=== PATIENT | female | born 2000 | race American Indian/Alaskan Native ===

== ENCOUNTER 2019-05-25 00:04 | Inpatient (IN) | payer MEDICAID ==
[2019-05-25] MEDS ORDERED: LACTATED RINGERS 1,000 ML IV ONE (00:24)
[2019-05-25 00:47] LABS: Basophils # (Auto) 0.1 K/mm3 (0.0-0.1); Basophils % (Auto) 0.4 % (0.0-1.8); Eosinophils # (Auto) 0.1 K/mm3 (0.0-0.4); Eosinophils % (Auto) 0.4 % (0.0-4.3); Hematocrit 36.1 % (30.3-42.9); Hemoglobin 11.8 gm/dl (10.1-14.3); Lymphocytes # (Auto) 2.6 K/mm3 (1.2-5.4); Lymphocytes % (Auto) 16.1 % (13.4-35.0); Mean Corpuscular HGB Conc 33 % (30-34); Mean Corpuscular Volume 85 fl (79-97); Monocytes # (Auto) 1.3 K/mm3 (0.0-0.8); Monocytes % (Auto) 7.9 % (0.0-7.3); Platelet Count 255 K/mm3 (140-440); Red Blood Count 4.24 M/mm3 (3.65-5.03); Red Cell Distribution Width 16.7 % (13.2-15.2)
[2019-05-25] MEDS ORDERED: BRETHINE SUB-Q ONE (00:54)
[2019-05-25] MEDS ORDERED: BRETHINE ONE (00:55)
[2019-05-25] MEDS ORDERED: SUBLIMAZE IV ONE (01:13)
[2019-05-25 01:19] LABS: Hepatitis C Virus Antibody Non-Reactive (NonReactive)
[2019-05-25] MEDS ORDERED: PEPCID IV ONE (01:47)
[2019-05-25] MEDS ORDERED: BICITRA PO ONE (01:47)
[2019-05-25] MEDS ORDERED: LACTATED RINGERS 1,000 ML IV SCH (02:00)
[2019-05-25] MEDS ORDERED: PITOCin/NS 20 UNIT/1000ML DRIP 20 UNITS/1,000 ML BAG IV SCH ×2 (02:00→06:20)
[2019-05-25] MEDS ORDERED: ANCEF/STERILE WATER 2 GM/20 ML 2 GM/20 ML SYRINGE IV NR (02:00)
[2019-05-25] MEDS ORDERED: REGLAN IV ONE (02:07)
[2019-05-25] MEDS ORDERED: WATER FOR IRRIG STERILE IR ONE (03:00)
[2019-05-25] MEDS ORDERED: NACL 0.9% IR ONE (03:00)
[2019-05-25] MEDS ORDERED: ZOFRAN ONE (03:31)
--- NOTE | 2019-05-25 04:46 | Anesthesia Consultation ---
Anesthesia Consult and Med Hx Date of service: 05/25/19 - Airway Anesthetic Teeth Evaluation: Good ROM Head & Neck: Adequate Mental/Hyoid Distance: Adequate Mallampati Class: Class II Intubation Access Assessment: Good - Pulmonary Exam CTA: Yes - Cardiac Exam Cardiac Exam: RRR - Pre-Operative Health Status ASA Pre-Surgery Classification: ASA2 Proposed Anesthetic Plan: Spinal - Pulmonary Hx Asthma: Yes (childhood) - Cardiovascular System Hx Hypertension: No - Central Nervous System Hx Seizures: No Hx Psychiatric Problems: No - Endocrine Hx Renal Disease: No Hx Hypothyroidism: No Hx Hyperthyroidism: No - Hematic Hx Anemia: No Hx Sickle Cell Disease: No - Other Systems Hx Alcohol Use: No
--- NOTE | 2019-05-25 04:47 | Anesthesia Day of Surgery ---
Anesthesia Day of Surgery - Day of Surgery Patient Examined: Yes Patient H&P Reviewed: Yes Patient is NPO: No
[2019-05-25] MEDS ORDERED: NUBAIN IV PRN (04:48)
[2019-05-25] MEDS ORDERED: NARCAN 0.4 MG/1 ML IV PRN ×2 (04:48→06:20)
[2019-05-25] MEDS ORDERED: ZOFRAN IV PRN (04:48)
[2019-05-25] MEDS ORDERED: PHENERGAN PR PRN (04:48)
[2019-05-25] MEDS ORDERED: PHENERGAN PO PRN (04:48)
[2019-05-25] MEDS ORDERED: DILAUDID IV PRN ×2 (04:48)
--- NOTE | 2019-05-25 04:48 | Post Anesthesia Evaluation ---
- Post Anesthesia Evaluation Patient Participated: Yes Airway Patent: Yes Stable Respiratory Function: Yes Nausea/Vomiting: No Temp > 96.8F: Yes Pain Manageable: Yes Adequeate Hydration: Yes Anesthesia Complications: No Block Receding Appropriately: Yes
[2019-05-25] MEDS ORDERED: SODIUM CHLORIDE FLUSH SYRINGE 10 ML IV NR ×2 (05:00→06:20)
[2019-05-25] MEDS ORDERED: TYLENOL PO SCH (05:00)
--- NOTE | 2019-05-25 05:04 | History and Physical Report ---
History of Present Illness Date of examination: 05/25/19 Date of admission: 05/25/19 02:34 Chief complaint: contractions History of present illness: Late entry. Pt is a 19 year old MARKEL 05/27/19 at 39w5d who presents in active labor with a history of 1 prior section. She lives in [facility] and was headed back there one her labor began. She denies any issues with her care the records are not available for review. Past History Past Medical History: no pertinent history Past Surgical History: section Social history: no significant social history - Obstetrical History Expected Date of Delivery: 05/27/19 Actual Gestation: 39 Week(s) 5 Day(s) : 2 Para: 1 Hx # Term Pregnancies: 1 Number of Pregnancies: 0 Spontaneous Abortions: 0 Induced : 0 Number of Living Children: 1 Medications and Allergies Allergies Allergy/AdvReac Type Severity Reaction Status Date / Time No Known Allergies Allergy Verified 05/25/19 00:22 Active Meds: Active Medications Acetaminophen (Tylenol) 650 mg PO Q6H NICK Stop: 05/26/19 23:01 Hydromorphone HCl (Dilaudid) 0.5 mg IV Q5M PRN PRN Reason: Breakthrough Pain Hydromorphone HCl (Dilaudid) 0.5 mg IV Q4H PRN PRN Reason: breakthrough pain > 7/10 Oxytocin/Sodium Chloride (Pitocin/Ns 20 Unit/1000ml Drip) 20 units in 1,000 mls @ 0 mls/hr IV TITR NICK Lactated Ringer's (Lactated Ringers) 1,000 mls @ 2,250 mls/hr IV PREOP NICK Stop: 05/26/19 02:27 Last Admin: 05/25/19 01:52 Dose: 2,250 mls/hr Documented by: Cefazolin Sodium (Ancef/Sterile Water 2 Gm/20 Ml) 2 gm in 20 mls @ 80 mls/hr IV PREOP NR; Protocol Stop: 05/25/19 23:45 Ketorolac Tromethamine (Toradol) 15 mg IV Q6HR NICK Stop: 05/27/19 00:01 Nalbuphine HCl (Nubain) 10 mg IV Q2H PRN PRN Reason: Pain, Moderate (4-6) Naloxone HCl (Narcan 0.4 Mg/1 Ml) 0.2 mg IV Q2MIN PRN PRN Reason: Res Rate </= 8 or 02 SAT < 92% Ondansetron HCl (Zofran) 4 mg IV Q8H PRN PRN Reason: Nausea And Vomiting Promethazine HCl (Phenergan) 25 mg PO Q6H PRN PRN Reason: Nausea And Vomiting Promethazine HCl (Phenergan) 25 mg AL Q6H PRN PRN Reason: Nausea And Vomiting Sodium Chloride (Sodium Chloride Flush Syringe 10 Ml) 10 ml IV PRN NR Review of Systems All systems: negative - Vital Signs Vital signs: Vital Signs Pulse BP 78 139/90 05/25/19 00:38 05/25/19 00:38 Temp Pulse Resp BP Pulse Ox 88 147/82 05/25/19 01:54 05/25/19 01:54 - Physical Exam Breasts: Positive: deferred Abdomen: Positive: soft (obese , gravid ) Uterus: Positive: enlarged (gravid) - Obstetrical FHR: auscultation normal Uterine Contraction Monitor Mode: External Cervical Dilatation: 5 (per RN ) Uterine Contraction Pattern: Regular Uterine Tone Measurement Phase: Resting Uterine Contraction Intensity: Strong/Firm Results Result Diagrams: 05/25/19 00:25 Abnormal lab results 05/25/19 Range/Units 00:25 WBC 15.9 H (4.5-11.0) K/mm3 RDW 16.7 H (13.2-15.2) % Amador % (Auto) 7.9 H (0.0-7.3) % Amador # 1.3 H (0.0-0.8) K/mm3 Seg Neutrophils % 75.2 H (40.0-70.0) % Seg Neutrophils # 11.9 H (1.8-7.7) K/mm3 All other labs normal. Assessment and Plan A: IUP at 39w5d Previous x 1 Active labor Obesity P: Proceed with repeat section and other indicated procedures
--- NOTE | 2019-05-25 05:05 | Procedure Note ---
OB Delivery Note - Delivery Date of Delivery: 05/25/19 Surgeon: KO ELIAS Estimated blood loss: other (800 mL) - Section Preop diagnosis: repeat , other (active labor ) Postop diagnosis: same section procedure: section Disposition: PACU Complications: none Narrative: Please see operative report. - A at 1 minute: 8 at 5 minutes: 9 Infant Gender: Male (3433g (7lb 9oz) @ 0336 am)
--- NOTE | 2019-05-25 05:08 | Operative Report ---
Operative Report Operative Report: Date of procedure: May 25, 2019 Preoperative diagnosis: 1) IUP at 39w5d 2) Previous x 1 3) Active labor 4) Obresity Postoperative diagnosis: Same Procedure: Repeat low transverse section Surgeon: Olivia Knutson M.D. Anesthesia: Regional Findings: 1) Viable female , Apgars 8 and 9, weight 3433g, (7 lb 9 oz) in cephalic presentation. Occiput Posterior 2) Normal-appearing uterus ovaries and tubes Estimated blood loss: 800 mL IV fluids: 1500 mL Urine output: 250 mL, clear at the end of the procedure Drains: Child to gravity Specimens: None Complications:None. Counts correct x 3 Disposition: Stable to PACU Indication for procedure: The patient is a 19-year-old -[place] female 2 para 1001 with a history of 1 prior section who presents in active labor. She desires repeat delivery. The decision was made proceeding with section. Operation in detail: After the risks, benefits, alternatives and complications were explained to the patient she gave informed consent for the procedure. She was subsequently taken to the operating room where regional anesthesia was noted to be adequate. She was subsequently placed in the dorsal supine position with leftward tilt and prepped and draped in a normal sterile fashion. heart tones were noted to be in the 155s prior to incision. A timeout was performed. A Pfannenstiel skin incision was made with the knife and carried down to the layer of the fascia with the Bovie. The fascia was incised in the midline and the fascial incision was extended bilaterally with the Bovie. Attention was then turned to the superior aspect of the incision which was grasped with two Kochers, tented up, and dissected off the rectus muscles. Attention was then turned to the inferior aspect of the incision which was grasped with two Kochers, tented up and dissected off the rectus muscles. The rectus muscles were then in the midline and partially transected for adequate visualization. The peritoneum was then entered bluntly. The peritoneal incision was extended with good visualization of the bladder. The peritoneal incision was then stretched. An Manny self-retaining retractor was placed for visualization. The bladder blade was placed. The vesicouterine peritoneum was grasped with smooth pickups and incised with Metzenbaum scissors. Metzenbaum scissors were used to extend the incision bilaterally. The bladder flap was then created digitally and the bladder blade was replaced. A transverse incision was made in the lower uterine segment with a knife and extended bilaterally with the bandage scissors. The head was delivered without difficulty followed by shoulders and body. was bulb suctioned at delivery. The cord was clamped and cut and the was handed to NICU staff in attendance. Cord blood was collected. The placenta was then d elivered manually. The uterus was then cleared of all clots and debris. The hysterotomy was then reapproximated with 0 Vicryl in a running locked fashion. A second layer of the same suture was used in imbricating fashion. The hysterotomy was inspected and hemostasis was noted. The Manny self-retaining retractor was removed. The gutters were irrigated and cleared of all clots and debris. The hysterotomy was again inspected and noted to be hemostatic. Surgicel was placed over the hysterotomy. The peritoneum was reapproximated with 2-0 Vicryl in a running fashion incorporating the rectus muscles. The fascia was reapproximated with 0 Vicryl in a running fashion. The subcutaneous tissue was reapproximated with 3- 0 Vicryl in a running fashion. The skin was reapproximated with 4-0 Vicryl in a subcuticular fashion. The incision was then covered with steri strips and a pressure dressing. The procedure was then ended. The patient tolerated the procedure well and was taken to the PACU in stable condition. All instrument, lap, and needle counts were correct 3.
[2019-05-25] MEDS ORDERED: TUCKS PAD TP PRN (06:20)
[2019-05-25] MEDS ORDERED: LANSINOH TP PRN (06:20)
[2019-05-25] MEDS ORDERED: MILK OF MAGNESIA PO PRN (06:20)
[2019-05-25] MEDS ORDERED: D5LR 1,000 ML IV SCH (06:20)
[2019-05-25] MEDS ORDERED: MYLICON PO PRN (06:20)
[2019-05-25] MEDS: TORADOL IV SCH ×2 (06:27→11:21)
[2019-05-25] MEDS: TYLENOL PO SCH ×3 (08:10→19:22)
[2019-05-25 08:16] LABS: Alanine Aminotransferase 10 units/L (7-56); Uric Acid 3.7 mg/dL (3.5-7.6)
[2019-05-25 09:17] LABS: Amphetamine Screen,Urine PRESUMPTIVE NEGATIVE; Benzodiazepines Screen,Urine PRESUMPTIVE NEGATIVE; Cannabinoid Screen,Urine PRESUMPTIVE NEGATIVE; Cocaine Screen,Urine PRESUMPTIVE NEGATIVE; Methadone Screen,Urine PRESUMPTIVE NEGATIVE; Opiate Screen,Urine PRESUMPTIVE NEGATIVE
[2019-05-25] MEDS: ANCEF/NS 1 GM/50 ML 1 GM/50 ML BAG IV SCH ×2 (09:22→17:55)
[2019-05-25] MEDS: FEOSOL PO SCH (09:22)
[2019-05-25] MEDS: PERCOCET 5/325 PO PRN ×2 (13:42→20:50)
[2019-05-25] MEDS ORDERED: TORADOL IV PRN (15:46)
[2019-05-25 16:53] LABS: Hematocrit 28.7 % (30.3-42.9); Hemoglobin 9.5 gm/dl (10.1-14.3)
[2019-05-26] MEDS: TYLENOL PO SCH ×5 (01:15→22:36)
[2019-05-26] MEDS: IBUPROFEN PO PRN ×4 (02:25→21:00)
[2019-05-26] MEDS: PERCOCET 5/325 PO PRN ×4 (02:25→20:59)
[2019-05-26] MEDS ORDERED: M-M-R II VACCINE SUB-Q ONE (06:00)
[2019-05-26] MEDS ORDERED: BOOSTRIX IM ONE (06:00)
[2019-05-26] MEDS: FEOSOL PO SCH (10:04)
--- NOTE | 2019-05-26 14:31 | Progress Note ---
Assessment and Plan A: POD#1 s/p repeat at term, Anemia, Obesity P: Routine care. Subjective - Subjective Date of service: 05/26/19 Principal diagnosis: s/p repeat section Interval history: No overnight events. Patient reports: appetite normal, voiding normally, pain well controlled, flatus, ambulating normally, no bowel movement [place]: doing well Objective - Vital Signs Latest vital signs: Vital Signs Temp Pulse Resp BP BP Pulse Ox 05/26/19 07:49 98.4 F 72 20 134/67 97 05/26/19 00:54 98.3 F 92 H 20 123/69 96 05/25/19 20:50 98.6 F 84 20 136/76 98 05/25/19 15:17 98 F 88 18 116/69 99 Intake and Output 05/25/19 05/26/19 05/26/19 22:59 06:59 14:59 Intake Total 480 240 120 Output Total 900 600 Balance -420 -360 120 Intake: Oral 480 240 120 Output: Urine 900 600 Indwelling Catheter 400 Void 500 600 Other: Total, Intake Amount 240 240 120 Total, Output Amount 500 600 # Voids Void 1 - Exam Breasts: Present: deferred Cardiovascular: Present: Regular rate Lungs: Present: Clear to auscultation Abdomen: Present: soft (obese ), abnormal bowel sounds (hypoactive ) Uterus: Present: fundal height below umbilicus Extremities: Present: edema (trace) Incision: Present: dressed - Labs Labs: Abnormal lab results 05/25/19 Range/Units 16:22 Hgb 9.5 L (10.1-14.3) gm/dl Hct 28.7 L D (30.3-42.9) %
[2019-05-26] MEDS: MILK OF MAGNESIA PO SCH (18:25)
[2019-05-27] MEDS: MILK OF MAGNESIA PO SCH ×3 (00:41→11:36)
[2019-05-27] MEDS: TYLENOL PO SCH (00:41)
[2019-05-27] MEDS: IBUPROFEN PO PRN ×3 (05:49→18:32)
[2019-05-27] MEDS: PERCOCET 5/325 PO PRN ×4 (05:49→23:23)
--- NOTE | 2019-05-27 08:22 | Progress Note ---
Assessment and Plan A/P POD2 repeat csec normal labs hgb 11-9 on iron consider d/c home tomorrow Subjective - Subjective Date of service: 05/27/19 Principal diagnosis: s/p repeat section Patient reports: appetite normal, voiding normally, pain well controlled, flatus, ambulating normally [place]: doing well Objective - Vital Signs Latest vital signs: Vital Signs Temp Pulse Resp BP Pulse Ox 05/27/19 07:41 99.2 F 20 123/61 05/27/19 06:49 18 05/27/19 05:49 18 05/27/19 01:41 18 05/27/19 01:02 98.1 F 73 20 126/56 97 05/27/19 00:41 18 05/26/19 22:00 18 05/26/19 21:59 18 05/26/19 21:00 18 05/26/19 20:59 18 05/26/19 16:32 98.1 F 98 H 20 124/48 98 Intake and Output 05/26/19 05/27/19 05/27/19 23:59 07:59 15:59 Intake Total 200 600 Balance 200 600 Intake: Oral 200 600 Other: Total, Intake Amount 200 600 # Voids Void 1 3 - Exam Breasts: Present: normal Cardiovascular: Present: Regular rate, Normal S1 Lungs: Present: Clear to auscultation, Normal air movement Abdomen: Present: normal appearance, normal bowel sounds. Absent: distention, tenderness, guarding Uterus: Present: normal, firm, fundal height below umbilicus. Absent: bogginess, tenderness Extremities: Present: normal Deep Tendon Reflex Grade: Normal +2 Incision: Present: normal, intact
[2019-05-27] MEDS: FEOSOL PO SCH (11:36)
[2019-05-28] MEDS: MILK OF MAGNESIA PO SCH ×2 (00:04→06:02)
[2019-05-28] MEDS: PERCOCET 5/325 PO PRN ×2 (04:41→08:33)
[2019-05-28] MEDS: IBUPROFEN PO PRN (04:41)
--- NOTE | 2019-05-28 07:45 | Progress Note ---
Assessment and Plan A/P POD3 repeat csec normal labs hgb 11-9 on iron d/c home with f/u in 2 weeks Subjective - Subjective Date of service: 05/28/19 Principal diagnosis: s/p repeat section Patient reports: appetite normal, voiding normally, pain well controlled, flatus, ambulating normally [place]: doing well Objective - Vital Signs Latest vital signs: Vital Signs Temp Pulse Resp BP Pulse Ox 05/28/19 05:41 18 05/28/19 04:41 18 05/28/19 00:23 18 05/27/19 23:23 18 05/27/19 19:32 18 05/27/19 16:03 98.0 F 83 20 140/78 98 05/27/19 12:07 98.2 F 76 18 105/53 98 Intake and Output 05/27/19 05/27/19 05/28/19 15:59 23:59 07:59 Intake Total 2160 600 Balance 2160 600 Intake: Oral 2160 600 Other: Total, Intake Amount 1080 600 Voiding Method Toilet # Voids 5 Indwelling Catheter 3 Void 5 # Bowel Movements 2 - Exam Breasts: Present: normal Cardiovascular: Present: Regular rate, Normal S1 Lungs: Present: Clear to auscultation, Normal air movement Abdomen: Present: normal appearance, soft, normal bowel sounds. Absent: distention, tenderness, guarding Vulva: both: normal Uterus: Present: normal, firm, fundal height below umbilicus. Absent: bogginess, tenderness Extremities: Present: normal Deep Tendon Reflex Grade: Normal +2 Incision: Present: normal, dry, intact
--- NOTE | 2019-05-28 07:47 | Discharge Summary ---
Providers - Providers Date of Admission: 05/25/19 02:34 Date of discharge: 05/28/19 Attending physician: KO ELIAS Primary care physician: KO ELIAS Hospitalization Reason for admission: IUP at term Delivery: Procedure: section, repeat low transverse Episiotomy: none Laceration: none Incision: normal, dry, intact complications: none Discharge diagnosis: IUP at term delivered baby: male Hospital course: Patient had a repeat csec. Unremarkable hospital course. Condition at discharge: Good Disposition: DC-01 TO HOME OR SELFCARE Plan - Discharge Medications Prescriptions: Ferrous Sulfate [Feosol 325 MG tab] 325 mg PO BID #60 tablet Ibuprofen [Motrin] 800 mg PO Q8HR PRN #30 tablet PRN Reason: Pain, Moderate (4-6) oxyCODONE /ACETAMINOPHEN [Percocet 5/325] 1 tab PO Q6HR PRN #30 tablet PRN Reason: Pain - Provider Discharge Summary Activity: routine, no sex for 6 weeks, no strenuous exercise Diet: routine Instructions: routine Additional instructions: [] Smoking cessation referral if applicable(refer to patient education folder for contact #) [] Refer to [facility] Booklet Call your doctor immediately for: * Fever > 100.5 * Heavy vaginal bleeding ( >1 pad per hour) * Severe persistent headache * Shortness of breath * Reddened, hot, painful area to leg or breast * Drainage or odor from incision. * Keep incision clean and dry at all times and follow doctor's instructions regarding bathing/showering - Follow up plan Follow up: KO ELIAS MD [Primary Care Provider] - 14 Days
[2019-05-29 00:33] VITALS: BP 120/68
== END 2019-05-28 10:00 | disposition home or self-care (01) | DRG 766 ==
LOC: TRG 00:04 → APU 02:34 → OB 06:15
PROVIDERS: ADMIT Obstetrics & Gynecology; ATTEND Obstetrics & Gynecology
PROC: 10D00Z1 Extraction of Products of Conception, Low, Open Approach (ICD-10-PCS; principal; 2019-05-25)
PROC: 3E0234Z Introduction of Serum, Toxoid and Vaccine into Muscle, Percutaneous Approach (ICD-10-PCS; 2019-05-26)
DX: O34.211 Maternal care for low transverse scar from previous cesarean delivery (principal); O99.02 Anemia complicating childbirth; D64.9 Anemia, unspecified; O99.214 Obesity complicating childbirth; E66.9 Obesity, unspecified; O99.52 Diseases of the respiratory system complicating childbirth; J45.909 Unspecified asthma, uncomplicated; Z3A.39 39 weeks gestation of pregnancy; Z37.0 Single live birth; Z23 Encounter for immunization
CPT/HCPCS: 36415; 80307; 82565; 83615; 84450; 84460; 84550; 85014; 85018; 85025; 86592; 86706; 86762; 86803; 86850; 86900; 86901; 87806; G0378; J0690; J1885; J2405; J2590; J2765; J3010; J3105; J7120; J7121